=== PATIENT | female | born 1970 | race Caucasian/White ===

== ENCOUNTER 2018-02-13 11:37 | Inpatient (IN) | payer OTHER ==
[~2018-02-13] VITALS: Ht 172.7 cm; Wt 104.3 kg
[2018-02-13] VITALS (12 sets, daily range): BP systolic 111–137; BP diastolic 75–95
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
[2018-02-13] MEDS ORDERED: NS(*) 0.9% 1000 ML BAG 1,000 ML IV ONE (11:45)
[2018-02-13] MEDS ORDERED: HYDROMORPHONE HCL 1 MG/ML SYRINGE IVP ONE ×2 (11:45→13:00)
[2018-02-13 12:32] LABS: PLATELET COUNT, AUTOMATED 163 K/uL (150-450)
[2018-02-13] MEDS ORDERED: ceFAZolin(*) 1 GM VIAL 1 GM in NS(*) 0.9% 100 ML ADDVANT BAG 100 ML IV ONE (12:50)
[2018-02-13] MEDS ORDERED: DIPHTH/TETANUS/ACEL. PERTUSSIS IM ONLY ONE (12:50)
[2018-02-13 12:55] LABS: INR 0.96
[2018-02-13] MEDS ORDERED: LORazepam 2 MG/ML VIAL IVP ONE (13:00)
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
[2018-02-13] MEDS ORDERED: METOCLOPRAMIDE 10 MG/2 ML SDV ONE (13:43)
[2018-02-13] MEDS ORDERED: ONDANSETRON 4 MG/2 ML VIAL ONE (13:43)
[2018-02-13] MEDS ORDERED: PROPOFOL EMUL(*) 10MG/ML 20 ML 20 ML ONE ×2 (13:43→14:45)
[2018-02-13] MEDS ORDERED: DEXAMETHASONE SOD 4 MG/ML VIAL ONE (13:43)
[2018-02-13] MEDS ORDERED: fentaNYL CITR 100 MCG/2 ML AMP ONE ×2 (13:46→17:29)
[2018-02-13] MEDS ORDERED: FAMOTIDINE 20 MG TAB PO ONE (13:50)
[2018-02-13] MEDS ORDERED: NORMOSOL R SOLN(*) 1000 ML BAG 1,000 ML IV PRN (13:50)
[2018-02-13] MEDS ORDERED: MIDAZOLAM 2 MG/2 ML VIAL IVP PRN (13:50)
[2018-02-13] MEDS ORDERED: LIDOCAINE/SOD BICARB 8.4% SYR ID ONE (13:50)
[2018-02-13] MEDS ORDERED: FAMOTIDINE 20 MG/50 ML PREMIX IVPB ONE (14:20)
[2018-02-13] MEDS ORDERED: fentaNYL CITR 100 MCG/2 ML AMP IVP ONE (15:00)
[2018-02-13] MEDS ORDERED: ceFAZolin 1 GM VIAL ONE (15:37)
[2018-02-13] MEDS ORDERED: BUPIVACAIN 0.25% INJ 50ML VIAL ONE (15:50)
[2018-02-13] MEDS ORDERED: HYDROmorphone HCL 2 MG/ML SDV ONE ×2 (16:12→18:57)
[2018-02-13] MEDS ORDERED: NS 0.9% IRRIGATION 1000ML PLCT IR ONE (16:24)
--- NOTE | 2018-02-13 17:26 | RADIOLOGY IMAGING REPORT ---
[place] [facility] [place]: Fabiana Carreon : 1970 MR: [id number] V: [id number] EXAM DATE: ORDERING PHYSICIAN: BILLY DIEGO TECHNOLOGIST: [place] [facility] [place]: Fabiana Carreon : 1970 Visit/Account:[id number] Date of Sevice: 02/13/2018 Exam type: C-ARM FLUORO 1 HR History: FRACTURED TIBIA Comparison: Left tibia and fibula performed earlier in the day. Findings: There are multiple intraoperative C-arm spot views of the left tibia and fibula demonstrating placeme nt of intramedullary jayshree and screws transfixing the mid shaft left tibial fracture in good anatomic a lignment. The midshaft left fibular fracture has been reduced in improved anatomic alignment as well . The total continuous fluoroscopy dose was 0.38221 mGray per meter squared. The total prostate be time was 119.6 seconds IMPRESSION: 1. As above Report Dictated By: Raissa Wahl MD at 02/13/2018 5:19 PM Report E-Signed By: Raissa Wahl MD at 02/13/2018 5:22 PM WSN:[email or web address]
[2018-02-13] MEDS ORDERED: MAGNESIUM HYDROXIDE* 30ML UDCP PO PRN (17:35)
[2018-02-13] MEDS ORDERED: PROMETHAZINE 25 MG/ML 1 ML AMP IVP PRN (17:35)
[2018-02-13] MEDS ORDERED: ONDANSETRON 4 MG/2 ML VIAL IVP PRN (17:35)
[2018-02-13] MEDS ORDERED: KCL/D5LR 20 MEQ/1000 ML PREMIX 1,000 ML IV PRN (17:35)
[2018-02-13] MEDS ORDERED: FLUSH 10 ML SYR IVP PRN (17:35)
[2018-02-13] MEDS ORDERED: diphenhydrAMINE 25 MG CAP PO PRN (17:35)
[2018-02-13] MEDS ORDERED: ACETAMINOPHEN 500 MG TAB PO PRN (17:35)
[2018-02-13] MEDS: ceFAZolin(*) 1 GM VIAL 1 GM in NS(*) 0.9% 100 ML ADDVANT BAG 100 ML IVPB SCH (20:47)
--- NOTE | 2018-02-13 23:21 | Hospitalist Consultation ---
History of Present Illness Requesting Physician Dr. Gray Reason for Consult Hypoxia History of Present Illness This patient was admitted for a tibia/fibula fracture and operative repair. It is reported that the surgery went well and was without complication. History Problems: (1) Pancreatitis (2) History of cholecystectomy Allergies: Coded Allergies: NSAIDS (Non-Steroidal Anti-Inflamma (Verified Allergy, Unknown, 02/13/18) Patient History: FH: breast cancer MOTHER FH: heart disease FATHER Hx Smoking: Yes (1/2 PPD) Smoking Status: Current: Every Day Smoker Caffeine Intake: Coffee, Tea, Soda Caffeine/Cups Per Day: 6 Hx Alcohol Use: No Hx Substance Use Disorder: No Review of Systems All Systems Reviewed/Normal: Yes Exam Vital Signs Vital Signs Date Time Temp Pulse Resp B/P (MAP) Pulse Ox O2 Delivery O2 Flow Rate FiO2 02/13/18 22:00 87 114/89 (97) 90 Nasal Cannula 8.0 02/13/18 19:30 16 02/13/18 19:30 98.9 Neuro: No Gross deficits Eyes: PERRLA Cardiovascular: Regular Rate and Rhythm Respiratory: Clear to Auscultation Extremities: No Edema Integumentary: No Cyanosis Medical Decision Making Data Points Result Diagram: 02/13/18 1225 02/13/18 1225 Assessment and Plan Problems: (1) Hypoxia Assessment & Plan: She is requiring 8 liters of oxygen. We will try to wean this overnight. A chest x-ray is also ordered for the morning. Venous Thromboembolism Antithrombotics Is Pt On Any Antithrombotics?: No Exam Sepsis Risk: Sepsis Risk CARLOS LEON DO Feb 13, 2018 23:21
[2018-02-14] VITALS (9 sets, daily range): BP systolic 102–130; BP diastolic 58–93; Ht 172.7 cm; Wt 104.3 kg
[2018-02-14] MEDS: ceFAZolin(*) 1 GM VIAL 1 GM in NS(*) 0.9% 100 ML ADDVANT BAG 100 ML IVPB SCH ×2 (05:07→13:46)
[2018-02-14 05:46] LABS: PLATELET COUNT, AUTOMATED 196 K/uL (150-450)
--- NOTE | 2018-02-14 06:29 | RADIOLOGY IMAGING REPORT ---
FACILITY: [facility] PATIENT NAME: Fabiana Carreon : 1970 MR: [id number] V: [id number] EXAM DATE: ORDERING PHYSICIAN: CARLOS LEON TECHNOLOGIST: Location: [facility] Patient: Fabiana Carreon : 1970 Visit/Account:[id number] Date of Sevice: 02/14/2018 AP CHEST 02/14/2018 6:00 AM. INDICATION: Hypoxia. COMPARISON: None. FINDINGS: Lungs are well-expanded. There is no consolidation. No pleural effusion or pneumothorax. Heart size i s normal. IMPRESSION: No acute abnormality. Report Dictated By: Rui Lozada MD at 02/14/2018 6:24 AM Report E-Signed By: Rui Lozada MD at 02/14/2018 6:25 AM WSN:[id number]
--- NOTE | 2018-02-14 10:08 | Hospitalist Progress Note ---
Subjective Progress Notes Subjective She has no complaints this morning. She is only requiring 0.5L of oxygen at this time at 91%. She had no acute events overnight. Patient Complains of: Cardiovascular: No: Chest Pain Respiratory: No: Shortness of Breath Physical Exam Vital Signs Date Time Temp Pulse Resp B/P (MAP) Pulse Ox O2 Delivery O2 Flow Rate FiO2 02/14/18 09:20 92 Nasal Cannula 1.0 02/14/18 07:46 98.3 78 12 117/80 (92) Intake and Output 02/15/18 07:00 Intake Total 160 ml Balance 160 ml Intake Oral 160 ml # Voids 2 General Appearance: Alert, Awake, No Acute Distress, Afebrile Neuro: No Gross deficits Cardiovascular: Regular Rate and Rhythm Respiratory: No Respiratory Distress, Clear to Auscultation Psych: Alert & Oriented X3, Appropriate Mood & Affect Result Diagram: 02/14/18 0512 02/13/18 1225 Assessment and Plan Problems: (1) Hypoxia Assessment & Plan: She was requiring 8 liters of oxygen s/p fracture repair. A chest x-ray performed this morning shows no acute processes. She is now only requiring 0.5L of oxygen and continues to use IS. She will continue to be weaned off oxygen. Exam Sepsis Risk: Sepsis Risk JAZZMINE TAN Feb 14, 2018 10:08
--- NOTE | 2018-02-14 15:53 | OPERATIVE REPORT 1 ---
EVENT DATE: February 13, 2018 SURGEON: Aldair Gray MD ANESTHESIOLOGIST: Grady Harris MD ANESTHESIA: General. VASCULAR RADIOLOGIST: NAKUL Alva PREOPERATIVE DIAGNOSIS Mid shaft tibia-fibula fracture. POSTOPERATIVE DIAGNOSIS Mid shaft tibia-fibula fracture. PROCEDURE PERFORMED Intramedullary nailing of the left tibia. DESCRIPTION OF PROCEDURE The patient was brought to the operating room and placed in the supine position. A bump was placed under the left hip, and the left lower extremity was prepped and draped in the normal sterile fashion using Prevail. A sterile stockinette, sterile U-drape, and a sterile tourniquet were placed on the lower extremity. A stockinette was incised right above the knee and held with a Coban. An Esmarch was then used to exsanguinate the lower extremity as the tourniquet was turned up to 300 mmHg. Once that was done, an incision was made directly over the patellar tendons. Skin was incised with a 15 blade down to the subcutaneous tissue. The subcutaneous tissue was bluntly dissected down to the paratenon. The paratenon was then incised and bluntly dissected over to the medial border of the patellar tendon. Once that was done, I bluntly dissected through the medial border of the patellar tendon down into the knee joint. We then were able to take some of the fat out to get a good visualization of the tibia. Once that was done, I then placed an introducing K- wire into what I felt was the medial appropriate starting hole. I brought fluoroscopy in. Under AP and lateral, found to confirm that this was the correct positioning. I then drilled the K-wire down in and then reamed over top of it. Once that was reamed, I then placed a K8 long guidewire all the way down using fluoroscopy AP and lateral at the fracture site to pass it through the fracture site and get all the way down to the distal tibial physis. On x- ray, I was able to identify the ball tip at the tibial physis. At this point, we started reaming. Even with a 9 mm reamer, we were already getting chatter at the fracture. Once I hd that passed, we went kept reaming all the way up to 10.5. At 10.5, we had a significant amount of chatter. Then, we measured our distance or length at 345. I introduced the nail without any difficulty, compressing the fracture around the nail. I then locked proximally using the proximal nail jig and checking on fluoroscopy that the nail was all the way down and not into the knee using AP and lateral. Once we had that, I then placed two screws obliquely in the static locking position. Once those were both drilled and placed without difficulty, I then again compressed the fracture. Then, we did our distal screws. We made one small incision directly over the anterior tibia, and using fluoroscopy, I was able to identify perfect circles, drilled down through the tibial nail, and placed a screw AP in distal tibia, and then we did the same medial to lateral in the distal tibia using perfect circles with x-ray. Checked on AP and lateral, made sure we had the screws in the correct position and the correct length, which we did. We went to the fracture site and made sure we had good compression and then went proximally and made sure that we had stayed stable, which we did. We closed the paratenon using a 3-0 Monocryl running stitch. We then closed the subcutaneous tissues in 3-0 Monocryl and xiomara. All suture holes were placed with xiomara, Adaptic, 4 x 4's, and a big bulky dermis dressing. The patient went to Recovery with no complications. ANDREY
[2018-02-14] MEDS: DIAZEPAM 5 MG TAB PO PRN (18:03)
[2018-02-14] MEDS: MORPHINE 2 MG/ML SYR IVP PRN (18:03)
[2018-02-15 01:55] VITALS: BP 126/83
[2018-02-15 06:34] LABS: PLATELET COUNT, AUTOMATED 168 K/uL (150-450)
--- NOTE | 2018-02-15 06:49 | Hospitalist Progress Note ---
Subjective Progress Notes Subjective No cp/sob. Physical Exam Vital Signs Date Time Temp Pulse Resp B/P (MAP) Pulse Ox O2 Delivery O2 Flow Rate FiO2 02/15/18 01:55 98.5 96 16 126/83 (97) 91 Nasal Cannula 2.0 General Appearance: Alert, Awake, No Acute Distress Result Diagram: 02/15/18 0550 02/13/18 1225 Assessment and Plan Problems: (1) Tibia/fibula fracture Status: Acute Assessment & Plan: She had a left intramedullary nailing of the tibia on 02/13. Her recovery is complicated by right knee pain that is extended, and cannot bear weight on the right secondary to pain. See Ortho and PT notes for details. [facility] is to go to [facility] for continued therapy. Will start Lovenox 40mg a day for VTE prophylaxis. (2) Hypoxia Assessment & Plan: She was requiring 8 liters of oxygen s/p fracture repair. A chest x-ray performed this morning shows no acute processes. She is now only requiring 2L of oxygen and continues to use IS. She will continue to be weaned off oxygen. Exam Sepsis Risk: No Definite Risk Problem Qualifiers (1) Tibia/fibula fracture: Encounter type: initial encounter Fracture type: open Open fracture type: open type I or II Laterality: left Qualified Codes: S82.202B - Unspecified fracture of shaft of left tibia, initial encounter for open fracture type I or II; S82.402B - Unspecified fracture of shaft of left fibula, initial encounter for open fracture type I or II ADRIANE DELANEY MD Feb 15, 2018 06:49
[2018-02-15 07:59] VITALS: BP 113/76
[2018-02-15] MEDS: ENOXAPARIN 40 MG/0.4ML SYR SC SCH (09:42)
[2018-02-15] MEDS: DOCUSATE SODIUM 100 MG CAP PO SCH ×2 (11:36→20:33)
[2018-02-15] MEDS: MORPHINE 2 MG/ML SYR IVP PRN (12:11)
[2018-02-15 12:15] VITALS: BP 121/78
--- NOTE | 2018-02-15 12:51 | RADIOLOGY IMAGING REPORT ---
FACILITY: [facility] - [place] PATIENT NAME: Fabiana Carreon : 1970 MR: [id number] V: [id number] EXAM DATE: ORDERING PHYSICIAN: VANNESSA RAO TECHNOLOGIST: Location: [facility] [place] Patient: Fabiana Carreon : 1970 Visit/Account:[id number] Date of Sevice: 02/15/2018 PELVIS INDICATION: Hamstring abrasion. COMPARISON: None available. FINDINGS: Single view of the pelvis. No evidence of acute fracture, dislocation, or radiopaque foreign body. Normal mineralization, joint spaces, and alignment. IMPRESSION: Negative pelvic radiograph. Report Dictated By: Nalod Martinez MD at 02/15/2018 12:45 PM Report E-Signed By: Naldo Martinez MD at 02/15/2018 12:47 PM WSN:[id number]
[2018-02-15 16:58] VITALS: BP 126/83
[2018-02-15 21:35] VITALS: BP 108/77
[2018-02-16] MEDS: DIAZEPAM 5 MG TAB PO PRN ×2 (00:03→22:22)
[2018-02-16 03:25] VITALS: BP 126/75
[2018-02-16 05:54] LABS: PLATELET COUNT, AUTOMATED 158 K/uL (150-450)
[2018-02-16 07:18] VITALS: BP 108/80
[2018-02-16] MEDS: DOCUSATE SODIUM 100 MG CAP PO SCH ×2 (09:00→20:55)
[2018-02-16] MEDS: ENOXAPARIN 40 MG/0.4ML SYR SC SCH (09:00)
--- NOTE | 2018-02-16 10:27 | Hospitalist Progress Note ---
Subjective Progress Notes Subjective This patient was admitted for a tib/fib fracture. She had no acute events overnight. Patient Complains of: Cardiovascular: No: Chest Pain Respiratory: No: Shortness of Breath Physical Exam Vital Signs Date Time Temp Pulse Resp B/P (MAP) Pulse Ox O2 Delivery O2 Flow Rate FiO2 02/16/18 07:26 94 Nasal Cannula 2.5 02/16/18 07:18 98.4 95 16 108/80 (89) Intake and Output 02/17/18 06:59 # Voids 1 Cardiovascular: Regular Rate and Rhythm Respiratory: Clear to Auscultation Result Diagram: 02/16/18 0526 02/13/18 1225 Assessment and Plan Problems: (1) Tibia/fibula fracture Status: Acute Assessment & Plan: She had a left intramedullary nailing of the tibia on 02/13. Her recovery is complicated by right knee pain that is extended, and cannot bear weight on the right secondary to pain. She will transfer to [facility] tomorrow. (2) Hypoxia Assessment & Plan: She was requiring 8 liters of oxygen s/p fracture repair. A chest x-ray did not show an acute processes. Her oxygen has been weaning. She may require supplemental therapy while at elevation. Exam Sepsis Risk: No Definite Risk Problem Qualifiers (1) Tibia/fibula fracture: Encounter type: initial encounter Fracture type: open Open fracture type: open type I or II Laterality: left Qualified Codes: S82.202B - Unspecified fracture of shaft of left tibia, initial encounter for open fracture type I or II; S82.402B - Unspecified fracture of shaft of left fibula, initial encounter for open fracture type I or II CARLOS LEON DO Feb 16, 2018 10:27
[2018-02-16 11:00] VITALS: BP 125/81
[2018-02-16 15:04] VITALS: BP 107/73
[2018-02-16 19:23] VITALS: BP 123/78
[2018-02-16 22:26] VITALS: BP 132/77
[2018-02-17 03:54] VITALS: BP 120/79
[2018-02-17] MEDS: DIAZEPAM 5 MG TAB PO PRN (04:24)
[2018-02-17 07:27] VITALS: BP 117/75
[2018-02-17] MEDS: ENOXAPARIN 40 MG/0.4ML SYR SC SCH (08:50)
[2018-02-17] MEDS: DOCUSATE SODIUM 100 MG CAP PO SCH (08:50)
--- NOTE | 2018-02-17 09:09 | Hospitalist Progress Note ---
Subjective Progress Notes Subjective She has no complaints this morning. She had no acute events overnight. Patient Complains of: Cardiovascular: No: Chest Pain Respiratory: No: Shortness of Breath Physical Exam Vital Signs Date Time Temp Pulse Resp B/P (MAP) Pulse Ox O2 Delivery O2 Flow Rate FiO2 02/17/18 07:35 95 Nasal Cannula 2.5 02/17/18 07:27 98.2 91 16 117/75 (89) Intake and Output 02/18/18 06:59 Intake Total 0 ml Balance 0 ml Intake Oral 0 ml General Appearance: Alert, Awake, No Acute Distress, Afebrile Cardiovascular: Regular Rate and Rhythm Respiratory: No Respiratory Distress, Clear to Auscultation GI: Soft and Non-Tender Psych: Alert & Oriented X3, Appropriate Mood & Affect Result Diagram: 02/16/18 0526 02/13/18 1225 Assessment and Plan Problems: (1) Tibia/fibula fracture Status: Acute Assessment & Plan: She had a left intramedullary nailing of the tibia on 02/13. Her recovery is complicated by right knee pain that is extended, and cannot bear weight on the right secondary to pain. She will transfer to [facility], when there is insurance approval. (2) Hypoxia Assessment & Plan: She was requiring 8 liters of oxygen s/p fracture repair. A chest x-ray did not show an acute processes. Her oxygen has been weaning. She may require supplemental therapy while at elevation. Exam Sepsis Risk: No Definite Risk Problem Qualifiers (1) Tibia/fibula fracture: Encounter type: initial encounter Fracture type: open Open fracture type: open type I or II Laterality: left Qualified Codes: S82.202B - Unspecified fracture of shaft of left tibia, initial encounter for open fracture type I or II; S82.402B - Unspecified fracture of shaft of left fibula, initial encounter for open fracture type I or II JAZZMINE TANP Feb 17, 2018 09:09
--- NOTE | 2018-02-17 09:29 | RADIOLOGY IMAGING REPORT ---
FACILITY: [facility] PATIENT NAME: Fabiana Carreon : 1970 MR: [id number] V: [id number] EXAM DATE: ORDERING PHYSICIAN: VANNESSA RAO TECHNOLOGIST: Location: [facility] Patient: Fabiana Carreon : 1970 Visit/Account:[id number] Date of Sevice: 02/15/2018 MRI KNEE RIGHT W/O CONTRAST COMPARISON: None. HISTORY: eval if ligaments injury, medial lateral joint tenderness to palpation. Crush injury on to the left leg. Patient had a left (contralateral) tibial jayshree placement on 02/13/2018. TECHNIQUE: Noncontrast multiplanar MRI of the right knee utilizing T1 weighted and fluid sensitive s equences. CONTRAST: None. FINDINGS: FLUID: Moderate size patellar effusion is present without fluid fluid levels to suggest hemarthrosis or lipohemarthrosis. Circumferential subcutaneous fat edema with partial sparing of the medial soft tissues. MENISCI: There are areas of intermediate signal in the medial and lateral menisci which do not defin itively contact the articular surface of the meniscus to satisfy MRI criteria for tear. TENDONS/LIGAMENTS: Abnormal thinning, irregularity and intermediate signal within the mid anterior cr uciate ligament, consistent with a partial-thickness/grade 2 tear. There are probably a few thin inta ct residual ACL fibers based on the sagittal oblique images (for example series 7 image 4), and coron al images. Abnormal intermediate signal in the proximal and mid posterior cruciate ligament consisten t with an acute low-grade sprain. There is mild edema-like signal adjacent to the medial collateral l igament without ligamentous thinning, consistent with acute grade 1 sprain, although there is abnorma l thickening and irregularity of the meniscofemoral ligament (for example series 5 image 15), consist ent with a partial tear of the meniscofemoral ligament. The meniscotibial ligament appears to be inta ct. Anterior to the MCL there is moderate thickening, abnormal intermediate signal in the medial reti naculum consistent with a grade 2 tear. There is marked thickening, irregularity and abnormal signal in the fibular collateral ligament proximally consistent with either a grade 2 or grade 3/complete te ar. Anterior to the fibular collateral ligament there appears to be a complete tear of the lateral re tinaculum which allows some of the joint fluid to escape into the lateral soft tissues. There is mild edema in the distal biceps femoris muscle but the biceps femoris tendon itself is intact. The poplit eus tendon is intact. MUSCLES: Mild edema in the biceps femoris, plantaris, and (proximal) medial gastrocnemius muscles. N o muscle atrophy. CARTILAGE: Superficial cartilage loss lining the medial patellar facet near its junction with the me griffin ridge, without subjacent marrow abnormality. Partial-thickness cartilage loss/thinning of the ca rtilage lining the medial aspect of the medial femoral condyle. BONES: Mild bone marrow edema in the medial margin of the medial femoral condyle, with about 1 mm de pression of the medial margin of the medial femoral condyle seen on coronal series 5, consistent with a subchondral fracture. There is mild bone marrow edema in the posterior lateral aspect of the media l tibial metaphysis, with subtle areas of linear intermediate signal deep to the tibial plateau on se nevin 6 image 16 consistent with acute subchondral fracture, without appreciable plateau depression. I ntermediate signal in the distal femoral metaphysis consistent with benign red marrow reconversion. OTHER: Negative. IMPRESSION: 1. Acute subchondral fracture of the medial femoral condyle with 1 mm depression of the articular bee rface. 2. Acute subchondral fracture of the medial tibial plateau without depression. 3. Acute grade 2 tear of the anterior cruciate ligament. 4. Partial-thickness tear of the meniscofemoral ligament; otherwise there is a grade 1 sprain of the MCL. 5. Grade 2 versus grade 3 tear of the proximal fibular collateral ligament which is dif icult to fol low proximally. There is an adjacent complete tear of the lateral retinaculum. 6. Low-grade sprain of the posterior cruciate ligament. 7. Moderate size suprapatellar effusion.Report Dictated By: Anup Loomis at 02/17/2018 8:53 AM Report E-Signed By: Anup Loomis at 02/17/2018 9:26 AM WSN:[id number]
[2018-02-17 10:48] VITALS: BP 121/77
== END 2018-02-17 15:00 | DRG 493 ==
LOC: ER 11:40 → OR 14:03 → INTOOBSV 19:30 → OBSVTOIN 19:30 → MED 19:30
PROVIDERS: ADMIT Orthopaedic Surgery; ATTEND Orthopaedic Surgery
PROC: 0QSH04Z Reposition Left Tibia with Internal Fixation Device, Open Approach (ICD-10-PCS; principal; 2018-02-13 15:28)
DX: S82.142A Displaced bicondylar fracture of left tibia, initial encounter for closed fracture (principal); S72.432A Displaced fracture of medial condyle of left femur, initial encounter for closed fracture; R09.02 Hypoxemia; F17.210 Nicotine dependence, cigarettes, uncomplicated; S82.832A Other fracture of upper and lower end of left fibula, initial encounter for closed fracture; Z23 Encounter for immunization; V86.99XA Unspecified occupant of other special all-terrain or other off-road motor vehicle injured in nontraffic accident, initial encounter; Y93.53 Activity, golf; Y92.39 Other specified sports and athletic area as the place of occurrence of the external cause; Y99.8 Other external cause status; Z90.49 Acquired absence of other specified parts of digestive tract
CPT/HCPCS: 36415; 71045; 72170; 76000; 82040; 82247; 82310; 82374; 82435; 82565; 82947; 83605; 84075; 84132; 84155; 84295; 84450; 84460; 84520; 85025; 85610; 85730; 90715; 96372; 97163; J0690; J1100; J1170; J1650; J2060; J2270; J2405; J2704; J2765; J3010; J3490; J7030; J7050

== ENCOUNTER → 2018-02-13 | Outpatient (CLI) | payer OTHER ==
[2018-02-14 09:08] VITALS: BMI 35.0
== END ==
LOC: AMB 10:25
PROVIDERS: ATTEND Nurse Practitioner
DX: M21.962 Unspecified acquired deformity of left lower leg (principal); M79.605 Pain in left leg; M79.89 Other specified soft tissue disorders; V09.1XXA Pedestrian injured in unspecified nontraffic accident, initial encounter
CPT/HCPCS: A0425; A0427